=== PATIENT | male | born 1965 | race Caucasian/White ===

== ENCOUNTER → 2017-08-19 10:51 | Outpatient (CLI) | payer BC | END | disposition home or self-care (01) | LOC: D.MRI 10:51 | DX: M54.16 Radiculopathy, lumbar region (principal); M54.12 Radiculopathy, cervical region ==

== ENCOUNTER 2019-10-10 09:50 | Emergency (ER) | payer BC ==
[~2019-10-10] VITALS: Ht 188 cm; Wt 79.5 kg
[2019-10-10 09:53] VITALS: Ht 188 cm; Wt 79.5 kg
[2019-10-10] MEDS ORDERED: [UNRECOGNIZED DRUG - REMARK] (09:54)
[2019-10-10] MEDS ORDERED: [UNRECOGNIZED DRUG - REMARK] (09:54)
[2019-10-10] MEDS ORDERED: GENTAK3.5 GM EACH EYE (11:20)
[2019-10-10 19:37] VITALS: BP 115/77
== END 2019-10-10 11:45 | disposition home or self-care (01) ==
LOC: D.ER 09:50
DX: T15.92XA Foreign body on external eye, part unspecified, left eye, initial encounter (principal); H57.12 Ocular pain, left eye; X58.XXXA Exposure to other specified factors, initial encounter